=== PATIENT | male | born 1985 | race Caucasian/White ===

== ENCOUNTER 2021-05-14 13:48 | Emergency (ER) | payer MEDICAID, OTHER ==
[~2021-05-14] VITALS: Ht 172.7 cm; Wt 77.3 kg
[2021-05-14 14:32] VITALS: BP 127/95
[2021-05-14 15:46] LABS: BASOPHILS % (AUTO) 0.5 % (0-1); EOSINOPHILS % (AUTO) 0.5 % (0-6); HEMATOCRIT 40.8 % (42.0-52.0); HEMOGLOBIN 13.4 g/dl (14.0-17.9); LYMPHOCYTES # (AUTO) 1.7 X10'3 (1.1-4.8); LYMPHOCYTES % (AUTO) 19.8 % (21-51); MEAN CORPUSCULAR HGB CONC 32.9 g/dL (33.0-36.5); MEAN CORPUSCULAR VOLUME 81.9 FL (78-98); MEAN PLATELET VOLUME 7.6 FL (7.4-10.4); MONOCYTES # (AUTO) 0.6 X10'3 (0-0.9); MONOCYTES % (AUTO) 7.4 % (2-12); NEUTROPHILS # (AUTO) 6.2 X10'3 (1.8-7.7); NEUTROPHILS % (AUTO) 71.8 % (42-75); PLATELET COUNT 288 X10'3 (140-440); RED BLOOD COUNT 4.98 X10'6 (4.70-6.10); RED CELL DISTRIBUTION WIDTH 16.4 % (11.5-14.5); WHITE BLOOD COUNT 8.6 X10'3 (4.5-11.0)
[2021-05-14] MEDS ORDERED: penicillin G benzathine 1.2 million unit/2ml syringe IM ONE (15:50)
[2021-05-14] MEDS ORDERED: azithromycin 250mg tablet PO ONE (15:50)
[2021-05-14 15:57] LABS: ALANINE AMINOTRANSFERASE 23 U/L (12-78); ALBUMIN 4.1 G/DL (3.4-5.0); ALBUMIN/GLOBULIN RATIO 1.1 (1.1-1.5); ALKALINE PHOSPHATASE 59 IU/L (46-116); ANION GAP 8 (8-16); ASPARTATE AMINO TRANSFERASE 17 U/L (10-37); BILIRUBIN,TOTAL 0.3 MG/DL (0.1-1.0); BLOOD UREA NITROGEN 12 MG/DL (7-18); CALCIUM 8.8 MG/DL (8.5-10.1); CHLORIDE 108 MMOL/L (99-107); CREATININE 1.09 MG/DL (0.60-1.10); GLUCOSE 100 MG/DL (70-104); POTASSIUM 4.5 MMOL/L (3.5-5.1); SODIUM 145 MMOL/L (135-145); TOTAL PROTEIN 7.7 G/DL (6.4-8.2); eGFR 77 ML/MIN
[2021-05-14] MEDS ORDERED: PENICILLIN G BENZATHINE 2,400,000 UNIT/4 ML SYRINGE IM ONE (16:10)
[2021-05-14] MEDS ORDERED: IBUP-1984 PO (16:22)
== END 2021-05-14 16:25 | disposition home or self-care (01) ==
LOC: ER 13:50
DX: N48.89 Other specified disorders of penis (principal); Z20.2 Contact with and (suspected) exposure to infections with a predominantly sexual mode of transmission
CPT/HCPCS: 36415; 80053; 85025; 86592; 87491; 87591; 96372; 99283; J0561

== ENCOUNTER 2021-05-17 14:14 | Emergency (ER) | payer MEDICAID ==
[~2021-05-17] VITALS: Ht 185.4 cm; Wt 77.9 kg
[~2021-05-17 14:14] MED LIST: IBUP-1984 PO
[2021-05-17 15:27] VITALS: BP 134/63
== END 2021-05-17 19:16 | disposition home or self-care (01) ==
LOC: ER 14:14
DX: R07.89 Other chest pain (principal); Z79.899 Other long term (current) drug therapy
CPT/HCPCS: 71046; 99283

== ENCOUNTER 2021-05-21 12:57 | Emergency (ER) | payer MEDICAID ==
[~2021-05-21] VITALS: Ht 188 cm; Wt 78.0 kg
[2021-05-21 14:07] VITALS: BP 127/80
[2021-05-21] MEDS ORDERED: penicillin G benzathine 1.2 million unit/2ml syringe IM ONE (18:40)
== END 2021-05-21 19:18 | disposition home or self-care (01) ==
LOC: ER 12:58
DX: A53.9 Syphilis, unspecified (principal); Z79.899 Other long term (current) drug therapy
CPT/HCPCS: 96372; 99283; J0561

== ENCOUNTER 2021-08-21 20:08 | Emergency (ER) | payer MEDICAID ==
[~2021-08-21] VITALS: Ht 185.4 cm; Wt 72.7 kg
[2021-08-21 20:41] VITALS: BP 149/52
[2021-08-22] MEDS ORDERED: LORazepam 1 MG tablet PO ONE (00:30)
== END 2021-08-22 00:40 | disposition home or self-care (01) ==
LOC: ER 20:08
DX: F41.9 Anxiety disorder, unspecified (principal)
CPT/HCPCS: 99283

== ENCOUNTER 2021-09-07 21:24 | Emergency (ER) | payer MEDICAID ==
--- NOTE | 2021-09-07 22:36 | NUR ---
PATIENT SITS IN LOBBY. HE IS WATCHING TELEVISION. HE DECLINES TRIAGE ON MULTIPLE OCCASIONS. THIS MANAGER WILL RE-EVALUATE AFTER A FEW MINUTES.
--- NOTE | 2021-09-08 01:23 | NUR ---
PATIENT REFUSES TO BE TRIAGED ON MULTIPLE OCCASIONS. HE STATES PARANOIA, DENIES S/I OR H/I. PATIENT IS DISRUPTIVE IN WAITING ROOM. SECURITY HAS ADVISED PATIENT EARLIER TO SIT CALMLY. HE HAS NOT COMPLIED. SECURITY HAS BEEN CALLED AGAIN. PATIENT REFUSES EVALUATION OR TRIAGE.
--- NOTE | 2021-09-08 01:27 | NUR ---
PATIENT HAS NOW LEFT HOSPITAL PROPERTY.
== END 2021-09-08 01:30 | disposition left against medical advice (07) ==
LOC: ER 21:25
DX: E86.0 Dehydration (principal); Z53.21 Procedure and treatment not carried out due to patient leaving prior to being seen by health care provider

== ENCOUNTER 2021-09-23 19:03 | Emergency (ER) | payer MEDICAID ==
[~2021-09-23] VITALS: Ht 188 cm; Wt 75.0 kg
[2021-09-23 19:07] VITALS: BP 136/86
== END 2021-09-23 22:27 | disposition left against medical advice (07) ==
LOC: ER 19:03
DX: R42 Dizziness and giddiness (principal); Z53.21 Procedure and treatment not carried out due to patient leaving prior to being seen by health care provider

== ENCOUNTER 2021-09-24 02:53 | Emergency (ER) | payer MEDICAID | END 2021-09-24 04:31 | disposition left against medical advice (07) | LOC: ER 02:53 | DX: Z53.21 Procedure and treatment not carried out due to patient leaving prior to being seen by health care provider (principal) ==

== ENCOUNTER 2021-09-25 09:46 | Emergency (ER) | payer MEDICAID ==
[~2021-09-25] VITALS: Ht 188 cm; Wt 75.0 kg
[2021-09-25 10:15] VITALS: BP 126/88
== END 2021-09-25 12:47 | disposition home or self-care (01) ==
LOC: ER 09:47
DX: R05.9 Cough, unspecified (principal); Z20.822 Contact with and (suspected) exposure to COVID-19; R43.8 Other disturbances of smell and taste; Z87.891 Personal history of nicotine dependence
CPT/HCPCS: 87635; 99283; C9803

== ENCOUNTER 2021-10-07 06:21 | Emergency (ER) | payer MEDICAID ==
[~2021-10-07] VITALS: Ht 188 cm; Wt 77.3 kg
[2021-10-07 06:35] VITALS: BP 122/79
== END 2021-10-07 08:33 | disposition left against medical advice (07) ==
LOC: ER 06:21
DX: A08.4 Viral intestinal infection, unspecified (principal); R11.2 Nausea with vomiting, unspecified; R19.7 Diarrhea, unspecified; F17.200 Nicotine dependence, unspecified, uncomplicated
CPT/HCPCS: 99281

== ENCOUNTER 2021-10-17 03:44 | Emergency (ER) | payer MEDICAID ==
[~2021-10-17] VITALS: Ht 188 cm; Wt 71.0 kg
[2021-10-17 05:49] VITALS: BP 144/87
== END 2021-10-17 07:49 | disposition home or self-care (01) ==
LOC: ER 03:45
DX: Z11.52 Encounter for screening for COVID-19 (principal)
CPT/HCPCS: 99283

== ENCOUNTER 2021-10-18 19:28 | Emergency (ER) | payer MEDICAID ==
[~2021-10-18] VITALS: Ht 188 cm; Wt 72.0 kg
[2021-10-18 20:18] VITALS: BP 130/68
[2021-10-18 22:29] LABS: CLARITY,URINE SLIGHTLY CLOUDY (Clear); COLOR,URINE YELLOW (Yellow); GLUCOSE, URINE NEGATIVE (Neg); KETONES,URINE NEGATIVE (Neg); LEUKOCYTE ESTERASE ,URINE NEGATIVE (Neg); NITRITES, URINE NEGATIVE (Neg); OCCULT BLOOD,URINE NEGATIVE (Neg); PH,URINE 5.5 (4.8-8.0); PROTEIN,URINE 30 mg/dl (Neg)
[2021-10-18 22:30] LABS: UA COLLECTION TYPE CLN CATCH MIDSTREAM
[2021-10-18 22:41] LABS: MUCUS STRANDS MANY /LPF (Neg); SQUAMOUS EPITHELIAL CELL,UR FEW /LPF (FEW)
[2021-10-18 22:42] LABS: SPERM MANY /HPF (NEGATIVE)
[2021-10-18 22:44] LABS: URINE AMPHETAMINE SCREEN POSITIVE (Neg); URINE BARBITUATE SCREEN NEGATIVE (Neg); URINE BENZODIAZEPINES SCREEN NEGATIVE (Neg); URINE CANNABINOID SCREEN NEGATIVE (Neg); URINE COCAINE SCREEN NEGATIVE (Neg); URINE METHADONE SCREEN NEGATIVE (Neg); URINE OPIATE SCREEN NEGATIVE (Neg); URINE PHENCYCLIDINE SCREEN NEGATIVE (Neg)
[2021-10-18 22:45] LABS: BACTERIA,URINE NONE SEEN /HPF (Neg); WBC,URINE 0-4 /HPF (0-4)
== END 2021-10-19 02:57 | disposition left against medical advice (07) ==
LOC: ER 19:30
DX: M54.9 Dorsalgia, unspecified (principal); Z53.21 Procedure and treatment not carried out due to patient leaving prior to being seen by health care provider
CPT/HCPCS: 80305; 81001

== ENCOUNTER 2021-10-21 03:09 | Emergency (ER) | payer MEDICAID ==
[~2021-10-21] VITALS: Ht 188 cm; Wt 75.0 kg
[2021-10-21 03:53] VITALS: BP 143/95
--- NOTE | 2021-10-21 06:36 | NUR ---
Pt decied that he feels fine and will be tested later. He left without formal d/c.
== END 2021-10-21 06:36 | disposition left against medical advice (07) ==
LOC: ER 03:10
DX: U07.1 COVID-19 (principal); R43.8 Other disturbances of smell and taste; F17.200 Nicotine dependence, unspecified, uncomplicated
CPT/HCPCS: 99281

== ENCOUNTER 2021-10-27 22:33 | Emergency (ER) | payer MEDICAID ==
[~2021-10-27] VITALS: Ht 188 cm; Wt 71.9 kg
[2021-10-28 07:05] VITALS: BP 144/90
--- NOTE | 2021-10-28 07:45 | NUR ---
Pt given and understands d/c instructions. Ambulatory with a steady gait.
== END 2021-10-28 07:45 | disposition home or self-care (01) ==
LOC: ER 22:34
DX: R42 Dizziness and giddiness (principal); F15.90 Other stimulant use, unspecified, uncomplicated
CPT/HCPCS: 71045; 93005; 99283

== ENCOUNTER 2021-10-29 00:48 | Emergency (ER) | payer MEDICAID ==
[~2021-10-29] VITALS: Ht 188 cm; Wt 58.0 kg
[2021-10-29 02:28] VITALS: BP 124/83
== END 2021-10-29 03:10 | disposition home or self-care (01) ==
LOC: ER 00:48
DX: R42 Dizziness and giddiness (principal); R09.81 Nasal congestion; F15.10 Other stimulant abuse, uncomplicated
CPT/HCPCS: 99281

== ENCOUNTER 2021-12-26 16:11 | Emergency (ER) | payer MEDICAID ==
[~2021-12-26] VITALS: Ht 188 cm; Wt 86.0 kg
--- NOTE | 2021-12-26 18:09 | NUR ---
MOE CalvinHARTFORD) [phone]. CALL WHEN D/C FOR RIDE
[2021-12-27 01:38] VITALS: BP 132/55
== END 2021-12-27 01:43 | disposition home or self-care (01) ==
LOC: ER 16:12
DX: A52.3 Neurosyphilis, unspecified (principal); H53.8 Other visual disturbances; F15.90 Other stimulant use, unspecified, uncomplicated
CPT/HCPCS: 70450; 99284

== ENCOUNTER 2022-07-12 02:30 | Emergency (ER) | payer MEDICAID ==
[~2022-07-12] VITALS: Ht 188 cm; Wt 79.5 kg
[2022-07-12 02:35] VITALS: BP 127/83
--- NOTE | 2022-07-12 07:38 | NUR ---
ATTEMPT EKG, UNABLE TO LOCATE PATIENT IN ER LOBBY OR PARKING LOT.
== END 2022-07-12 09:26 | disposition left against medical advice (07) ==
LOC: ER 02:30
DX: R42 Dizziness and giddiness (principal); Z53.21 Procedure and treatment not carried out due to patient leaving prior to being seen by health care provider

== ENCOUNTER 2022-07-17 05:10 | Emergency (ER) | payer MEDICAID ==
[~2022-07-17] VITALS: Ht 188 cm; Wt 80.0 kg
[2022-07-17 05:13] VITALS: BP 135/92
== END 2022-07-17 06:21 | disposition left against medical advice (07) ==
LOC: ER 05:11
DX: R05.9 Cough, unspecified (principal); R19.7 Diarrhea, unspecified; Z53.21 Procedure and treatment not carried out due to patient leaving prior to being seen by health care provider

== ENCOUNTER 2022-10-10 21:18 | Emergency (ER) | payer MEDICAID ==
[~2022-10-10] VITALS: Ht 188 cm; Wt 72.7 kg
[~2022-10-10 21:18] MED LIST changes: +CLON-473 PO; +DULO-31 PO; -IBUP-1984 PO
[2022-10-10 21:23] VITALS: BP 140/93
[2022-10-10] MEDS ORDERED: ALBU6.7H14 INH (22:12)
[2022-10-10] MEDS ORDERED: AMOX-117 PO (22:12)
[2022-10-10] MEDS ORDERED: GUAI1TBM19 PO (22:12)
== END 2022-10-10 22:26 | disposition home or self-care (01) ==
LOC: ER 21:19
DX: J40 Bronchitis, not specified as acute or chronic (principal); F15.10 Other stimulant abuse, uncomplicated; F17.200 Nicotine dependence, unspecified, uncomplicated; Z79.899 Other long term (current) drug therapy
CPT/HCPCS: 71046; 99283

== ENCOUNTER 2022-10-11 06:56 | Emergency (ER) | payer MEDICAID ==
[~2022-10-11] VITALS: Ht 188 cm; Wt 72.7 kg
[~2022-10-11 06:56] MED LIST changes: +ALBU6.7H14 INH; +AMOX-117 PO; +GUAI1TBM19 PO
[2022-10-11 07:00] VITALS: BP 132/81
--- NOTE | 2022-10-11 07:26 | NUR ---
ASSESSED AND CLEARED BY MD SAMARA
== END 2022-10-11 07:33 | disposition home or self-care (01) ==
LOC: ER 06:57
DX: F15.90 Other stimulant use, unspecified, uncomplicated (principal); Z79.899 Other long term (current) drug therapy
CPT/HCPCS: 99281

== ENCOUNTER 2022-12-10 08:30 | Emergency (ER) | payer MEDICAID ==
[~2022-12-10] VITALS: Ht 188 cm; Wt 85.0 kg
[~2022-12-10 08:30] MED LIST changes: -AMOX-117 PO
[2022-12-10 08:39] VITALS: BP 129/57
[2022-12-10] MEDS ORDERED: PENICILLIN G BENZATHINE 2,400,000 UNIT/4 ML SYRINGE IM STA (09:42)
== END 2022-12-10 11:09 | disposition home or self-care (01) ==
LOC: ER 08:31
DX: A64 Unspecified sexually transmitted disease (principal); F15.90 Other stimulant use, unspecified, uncomplicated; Z79.899 Other long term (current) drug therapy
CPT/HCPCS: 36415; 86592; 96372; 99283; J0561

== ENCOUNTER 2023-07-04 19:51 | Emergency (ER) | payer MEDICAID ==
[~2023-07-04] VITALS: Ht 188 cm; Wt 80.4 kg
[2023-07-04 20:15] VITALS: BP 161/96; PULSE 99; RESP 18; TEMP 100.4; O2SAT 95
== END 2023-07-04 23:28 | disposition left against medical advice (07) ==
LOC: ER 19:52
DX: F15.10 Other stimulant abuse, uncomplicated (principal); Z79.899 Other long term (current) drug therapy
CPT/HCPCS: 99281

== ENCOUNTER 2023-07-05 09:08 | Emergency (ER) | payer MEDICAID ==
[~2023-07-05] VITALS: Ht 188 cm; Wt 78.2 kg
[2023-07-05 09:16] VITALS: BP 131/77; PULSE 74; RESP 16; TEMP 98.2; O2SAT 94
[2023-07-06] MEDS ORDERED: AMOX500C2 PO (11:27)
== END 2023-07-05 10:05 | disposition home or self-care (01) ==
LOC: ER 09:09
DX: F15.10 Other stimulant abuse, uncomplicated (principal); Z79.899 Other long term (current) drug therapy
CPT/HCPCS: 99281

== ENCOUNTER 2023-07-06 10:27 | Emergency (ER) | payer MEDICAID ==
[~2023-07-06] VITALS: Ht 188 cm; Wt 88.0 kg
[2023-07-06] MEDS ORDERED: AMOX500C2 PO (11:27)
[2023-07-06 11:38] VITALS: BP 132/86; PULSE 90; RESP 20; TEMP 97.8; O2SAT 97
--- NOTE | 2023-07-06 17:17 | NUR ---
I AGREE WITH THE ASSESSMENT DONE BY ARVIND FENG.
== END 2023-07-06 11:40 | disposition home or self-care (01) ==
LOC: ER 10:28
DX: F15.10 Other stimulant abuse, uncomplicated (principal); Z79.899 Other long term (current) drug therapy
CPT/HCPCS: 99283

== ENCOUNTER 2023-10-19 12:09 | Emergency (ER) | payer MEDICAID ==
[~2023-10-19] VITALS: Ht 188 cm; Wt 81.0 kg
[2023-10-19 14:06] LABS: BILIRUBIN,URINE MODERATE (Neg); CLARITY,URINE SLIGHTLY CLOUDY (Clear); GLUCOSE, URINE NEGATIVE (Neg); KETONES,URINE 15 mg/dl (Neg); LEUKOCYTE ESTERASE ,URINE NEGATIVE (Neg); NITRITES, URINE NEGATIVE (Neg); OCCULT BLOOD,URINE LARGE (Neg); PROTEIN,URINE 100 mg/dl (Neg)
[2023-10-19 14:18] LABS: URINE AMPHETAMINE SCREEN POSITIVE (Neg); URINE BARBITUATE SCREEN NEGATIVE (Neg); URINE BENZODIAZEPINES SCREEN NEGATIVE (Neg); URINE CANNABINOID SCREEN NEGATIVE (Neg); URINE COCAINE SCREEN NEGATIVE (Neg); URINE METHADONE SCREEN NEGATIVE (Neg); URINE OPIATE SCREEN NEGATIVE (Neg); URINE PHENCYCLIDINE SCREEN NEGATIVE (Neg)
[2023-10-19 14:20] LABS: BASOPHILS % (AUTO) 0.1 % (0-1); EOSINOPHILS % (AUTO) 0.3 % (0-6); HEMATOCRIT 40.2 % (42.0-52.0); HEMOGLOBIN 13.3 g/dl (14.0-17.9); LYMPHOCYTES # (AUTO) 1.5 X10'3 (1.1-4.8); LYMPHOCYTES % (AUTO) 12.3 % (21-51); MEAN CORPUSCULAR HEMOGLOBIN 28.4 PG (27.0-31.0); MEAN CORPUSCULAR HGB CONC 33.1 g/dL (33.0-36.5); MEAN CORPUSCULAR VOLUME 85.7 FL (78-98); MEAN PLATELET VOLUME 8.2 FL (7.4-10.4); MONOCYTES # (AUTO) 1.6 X10'3 (0-0.9); MONOCYTES % (AUTO) 12.6 % (2-12); NEUTROPHILS # (AUTO) 9.4 X10'3 (1.8-7.7); NEUTROPHILS % (AUTO) 74.7 % (42-75); PLATELET COUNT 212 X10'3 (140-440); RED BLOOD COUNT 4.69 X10'6 (4.70-6.10); RED CELL DISTRIBUTION WIDTH 14.4 % (11.5-14.5); WHITE BLOOD COUNT 12.6 X10'3 (4.5-11.0)
[2023-10-19 14:24] LABS: COLOR,URINE DARK YELLOW (Yellow); MUCUS STRANDS MANY /LPF (Neg); UA COLLECTION TYPE CLN CATCH MIDSTREAM
[2023-10-19 14:25] LABS: COARSE GRANULAR CAST 0-3 /LPF (NEGATIVE); FINE GRANULAR CAST 0-3 /LPF (NEGATIVE); HYALINE CASTS 0-3 /LPF (NEGATIVE); RBC,URINE TNTC /HPF (0-2); SQUAMOUS EPITHELIAL CELL,UR FEW /LPF (FEW)
[2023-10-19 14:26] LABS: AMORPHOUS URATES 1+; BACTERIA,URINE FEW /HPF (Neg)
[2023-10-19 14:32] LABS: ALANINE AMINOTRANSFERASE 42 U/L (12-78); ALBUMIN 4.2 G/DL (3.4-5.0); ALBUMIN/GLOBULIN RATIO 1.3 (1.1-1.5); ALKALINE PHOSPHATASE 74 IU/L (46-116); ANION GAP 12 (8-16); ASPARTATE AMINO TRANSFERASE 47 U/L (10-37); BILIRUBIN,TOTAL 1.2 MG/DL (0.1-1.0); BLOOD UREA NITROGEN 17 MG/DL (7-18); BUN/CREATININE RATIO 17.7 (10.0-20.0); C-REACTIVE PROTEIN 4.43 MG/DL (0.0-0.5); CALCIUM 9.2 MG/DL (8.5-10.1); CHLORIDE 100 MMOL/L (99-107); CREATININE 0.96 MG/DL (0.60-1.10); GLUCOSE 94 MG/DL (70-104); POTASSIUM 3.4 MMOL/L (3.5-5.1); SODIUM 139 MMOL/L (135-145); TOTAL CARBON DIOXIDE 27.4 MMOL/L (24-32); TOTAL PROTEIN 7.4 G/DL (6.4-8.2); eCRCL 120 ML/MIN; eGFR 88 ML/MIN
[2023-10-19] MEDS ORDERED: CefTRIAXone/D5W-Rocephin 1gm 50 ML IV ONE (15:30)
[2023-10-19] MEDS ORDERED: clindamycin 600mg/D5W 50ml 50 ML IV ONE (15:30)
[2023-10-19] MEDS ORDERED: LIDOcaine 1% W/epiNEPHrine 1:100,000 20ml vial SQ ONE (15:50)
[2023-10-19] MEDS ORDERED: LIDOCAINE 1%/EPI 1:100,000 inj. 10 ML multi-dose vial SQ ONE (16:00)
[2023-10-19 17:03] LABS: SYNOVIAL FLUID CRYSTALS QT NO CRYSTALS SEEN
[2023-10-19 17:38] LABS: APPEARANCE,SYNOVIAL FLUID CLOUDY; COLOR,SYNOVIAL FLUID OTHER
[2023-10-19 17:39] LABS: LYMPHOCYTES,SYNOVIAL FLUID 23 % (0-75); MONOCYTES,SYNOVIAL FLUID 18 % (0-0); NEUTROPHILS,SYNOVIAL FLUID 59 % (0-25); SYN RBC 10725 /CU MM (0)
[2023-10-19] MEDS ORDERED: SULF1TAB48 PO (17:49)
[2023-10-19 18:09] VITALS: BP 129/78; PULSE 80; RESP 17; TEMP 98.2; O2SAT 99
[2023-10-20 11:01] LABS: SYN WBC 150 /CU MM (0-200)
== END 2023-10-19 18:11 | disposition home or self-care (01) ==
LOC: ER 12:09
DX: M71.162 Other infective bursitis, left knee (principal); L03.116 Cellulitis of left lower limb; F15.90 Other stimulant use, unspecified, uncomplicated; Z79.899 Other long term (current) drug therapy
CPT/HCPCS: 20610; 36415; 73562; 80053; 80305; 81001; 83605; 84145; 85025; 85651; 86140; 87040; 87070; 87075; 87088; 89051; 89060; 96365; 96368; 99284; J0696; J3490

== ENCOUNTER 2023-10-19 20:42 | Emergency (ER) | payer MEDICAID ==
[~2023-10-19] VITALS: Ht 188 cm; Wt 81.8 kg
[~2023-10-19 20:42] MED LIST changes: +SULF1TAB48 PO
[2023-10-19] MEDS ORDERED: ibuprofen tablet 400 MG TABLET PO ONE (21:05)
[2023-10-19 23:11] VITALS: BP 127/69; PULSE 105; RESP 18; TEMP 98.6; O2SAT 98
== END 2023-10-19 21:16 | disposition home or self-care (01) ==
LOC: ER 20:43
DX: M25.562 Pain in left knee (principal); F15.90 Other stimulant use, unspecified, uncomplicated; Z79.899 Other long term (current) drug therapy; Z79.2 Long term (current) use of antibiotics
CPT/HCPCS: 29505; 99283

== ENCOUNTER 2024-01-23 23:08 | Emergency (ER) | payer MEDICAID ==
[~2024-01-23] VITALS: Ht 188 cm; Wt 75.3 kg
[~2024-01-23 23:08] MED LIST changes: -SULF1TAB48 PO
[2024-01-23 23:25] VITALS: BP 130/91; PULSE 90; RESP 18; TEMP 97.9; O2SAT 100
== END 2024-01-24 00:03 | disposition left against medical advice (07) ==
LOC: ER 23:09
DX: R42 Dizziness and giddiness (principal); R51.9 Headache, unspecified; Z53.21 Procedure and treatment not carried out due to patient leaving prior to being seen by health care provider
CPT/HCPCS: 82948; 93005

== ENCOUNTER 2024-03-01 21:14 | Emergency (ER) | payer MEDICAID ==
[~2024-03-01] VITALS: Ht 188 cm; Wt 76.0 kg
[2024-03-01 21:54] VITALS: BP 137/69; PULSE 83; RESP 16; TEMP 98; O2SAT 98
== END 2024-03-01 22:32 | disposition home or self-care (01) ==
LOC: ER 21:16
DX: F99 Mental disorder, not otherwise specified (principal); F15.90 Other stimulant use, unspecified, uncomplicated; Z79.899 Other long term (current) drug therapy
CPT/HCPCS: 99283

== ENCOUNTER 2024-03-08 04:33 | Emergency (ER) | payer MEDICAID ==
[2024-03-09] MEDS ORDERED: AMOX-117 PO (09:26)
[2024-03-09] MEDS ORDERED: PSEU120T56 PO (09:26)
[2024-03-09] MEDS ORDERED: FLUT16SP2 BOTHNARES (09:26)
== END 2024-03-08 07:05 | disposition left against medical advice (07) ==
LOC: ER 04:34
DX: Z00.00 Encounter for general adult medical examination without abnormal findings (principal); Z53.21 Procedure and treatment not carried out due to patient leaving prior to being seen by health care provider

== ENCOUNTER → 2024-03-09 | Emergency (ER) | payer MEDICAID ==
[~2024-03-09] VITALS: Ht 188 cm; Wt 70.1 kg
[~2024-03-09] MED LIST changes: +AMOX-117 PO; +FLUT16SP2 BOTHNARES; +PSEU120T56 PO
[2024-03-09 07:53] VITALS: BP 140/85; PULSE 58; RESP 18; TEMP 98.6; O2SAT 100
== END | disposition home or self-care (01) ==
LOC: ER 07:13
DX: J32.9 Chronic sinusitis, unspecified (principal); F15.90 Other stimulant use, unspecified, uncomplicated; H44.003 Unspecified purulent endophthalmitis, bilateral; Z79.899 Other long term (current) drug therapy
CPT/HCPCS: 99283

== ENCOUNTER 2025-04-30 10:43 | Emergency (ER) | payer MEDICAID ==
[~2025-04-30] VITALS: Ht 188 cm; Wt 75.6 kg
[~2025-04-30 10:43] MED LIST changes: -AMOX-117 PO
[2025-04-30 10:59] VITALS: BP 140/89; PULSE 110; RESP 16; TEMP 98.2; O2SAT 97
--- NOTE | 2025-04-30 11:39 | RADIOLOGY REPORT ---
CLINICAL INDICATION: FOOT PAIN,RIGHT TECHNIQUE: DI FOOT, COMPLETE (3VW MIN) Comparison: None FINDINGS/IMPRESSION: : Healing fracture of the mid 2nd metatarsal with extensive bony callus formation. Severe soft-tissue swelling at the distal dorsal aspect of the foot.
== END 2025-04-30 11:57 | disposition left against medical advice (07) ==
LOC: ER 10:43
DX: M79.671 Pain in right foot (principal); Z53.21 Procedure and treatment not carried out due to patient leaving prior to being seen by health care provider
CPT/HCPCS: 73630

== ENCOUNTER 2025-04-30 21:02 | Emergency (ER) | payer MEDICAID ==
[~2025-04-30] VITALS: Ht 188 cm; Wt 77.3 kg
[2025-04-30 21:06] VITALS: BP 147/102; PULSE 99; RESP 15; TEMP 98.6; O2SAT 98
--- NOTE | 2025-04-30 22:45 | Physician Documentation ---
History of Present Illness ~ Chief Complaint: Hallucinations Stated Complaint: HALLUCINATIONS Time Seen by MD: 21:22 Primary Medical Doctor: none HPI 40-year-old male presents to the ED after AMA pain from the lobby earlier today. His complaint is he thought he was at a laundromat and heard animals that were not there which concerned him. He denies any history of schizophrenia. He does report recent methamphetamine use however patient also complains of homelessness. He denies any SI or HI Day of Onset: Apr 30, 2025 Medication Reconciliation Allergies: Coded Allergies: No Known Allergies (Unverified , 03/09/24) Scheduled Albuterol Sulfate (Proventil Hfa), 2 PUFFS INH Q6H Clonidine HCl (Clonidine HCl), 1 TAB PO as directed Duloxetine Hcl* (Cymbalta*), 1 CAP PO DAILY Fluticasone Propionate (Flonase), 2 SPRAYS BOTHNARES DAILY Guaifenesin/Dextromethorphan (Mucinex Dm ER 1,200-60 mg Tab), 1 TAB PO Q12H Pseudoephedrine HCl (Sudafed 12 Hour), 1 TAB PO Q12H Past Medical History Past Medical History: No Pertinent History, *MUSCULOSKELETAL*, *INFECTIOUS DZ*, *PSYCH* Past Surgical History: noncontributory Alcohol Use: Rarely Drug Use: methamphetamine Lives with: Family Lives In: Home Occupation: employed Review of Systems All Other Systems at this time: Reviewed and Negative ROS As stated above in the HPI, otherwise all systems are reviewed and negative. Physical Exam Vital Signs: Temperature: 98.6, Source: Temporal, Heart Rate: 99, Respiratory Rate: 15, BP: 147/102, Pulse Oximetry: 98, Weight: 77.270 Physical Exam General: Alert, no apparent distress. Respiratory: Lungs clear, no respiratory distress. Cardiovascular: Regular rate and rhythm, no murmurs. Neurologic: Oriented x4. Psychiatric: Normal mood and affect. Progress Results/Orders Results/Orders Vital Signs 04/30/25 21:06 Temp 98.6 Pulse 99 Resp 15 B/P (MAP) 147/102 Pulse Ox 98 Medical Decision Making Findings Patient is highly suspicious for meth induced psychosis and/or hallucinations. He has been appropriate during the time he stayed in the ED. he does not present as a danger to himself he has denies any commanding hallucinations. At this time patient presents as a good candidate outpatient therapy for alcohol and drug rehabilitation Differential Dx:Considerations: Include: Alcohol abuse, Anxiety, Bipolar disorder, Conversion disorder, Depression, Encephaloathy, Homicidal, Panic disorder, Personality disorder, Schizophrenia, Substance abuse, Suicidal, Other Departure Disposition: 01 HOME / SELF CARE / HOMELESS Impression: Primary Impression: Hallucinations Additional Impressions: Schizophrenia Methamphetamine abuse Condition: Stable Discharge Instructions: Alcohol and Drug Use Additional Instructions: stop using methamphetamine Referrals: NO PRIMARY CARE PROVIDER (PCP) Education Educated: Patient Signature Scribe Signature: t Attestation: Scribed for Kit Layton Sand Mixer by Kit Martino NP . 04/30/25 22:51 KIT LAYTON NP Apr 30, 2025 22:45
== END 2025-04-30 23:06 | disposition home or self-care (01) ==
LOC: ER 21:03
DX: F20.9 Schizophrenia, unspecified (principal); F15.10 Other stimulant abuse, uncomplicated; Z59.00 Homelessness unspecified
CPT/HCPCS: 99283

== ENCOUNTER 2025-05-01 17:09 | Emergency (ER) | payer MEDICAID ==
[~2025-05-01] VITALS: Ht 188 cm; Wt 76.0 kg
[2025-05-01 17:34] VITALS: BP 136/78; PULSE 88; RESP 18; O2SAT 97
--- NOTE | 2025-05-01 20:28 | Physician Documentation ---
History of Present Illness ~ Chief Complaint: Foot pain Stated Complaint: RT FOOT PAIN Time Seen by MD: 19:48 Primary Medical Doctor: none Source: patient Mode of Arrival: POV Exam Limitations: no limitations HPI Chief Complaint: Right foot pain Caveat: None Independent Historians: None History of Present Illness: Patient is a 40-year-old man who fell at least 8 ft off a roof onto his feet. Patient since then has had severe pain in the mid anterior right foot. Patient states that he has always walking and has not been able to rest as much as possible because he is homeless and he has to go places. Patient's pain is 6/10 at rest and 10/10 with attempts at walking. Patient is unable to bear weight on the balls of his feet because of pain in the anterior and mid foot. Patient has associated swelling. Patient states that he has been walking on his heel. Patient Was seen here yesterday for the same thing and left AMA. Review of systems: All systems were reviewed and are negative except for what is indicated in the history of present illness. Past Medical History: None Past Surgical History: None Social History: Quit tobacco use, occasional alcohol use, occasional meth use Medications: Reviewed as documented Nursing Notes Allergies: Reviewed as documented in Nursing Notes Tetanus witin 5 years: No Medication Reconciliation Allergies: Coded Allergies: No Known Allergies (Unverified , 05/01/25) Scheduled Albuterol Sulfate (Proventil Hfa), 2 PUFFS INH Q6H Clonidine HCl (Clonidine HCl), 1 TAB PO as directed Duloxetine Hcl* (Cymbalta*), 1 CAP PO DAILY Fluticasone Propionate (Flonase), 2 SPRAYS BOTHNARES DAILY Guaifenesin/Dextromethorphan (Mucinex Dm ER 1,200-60 mg Tab), 1 TAB PO Q12H Pseudoephedrine HCl (Sudafed 12 Hour), 1 TAB PO Q12H Past Medical History Past Medical History: No Pertinent History, *MUSCULOSKELETAL*, *INFECTIOUS DZ*, *PSYCH* Past Surgical History: noncontributory Alcohol Use: Rarely Drug Use: methamphetamine Lives with: Family Lives In: Home Occupation: employed Review of Systems All Other Systems at this time: Reviewed and Negative ROS Patient denies any other acute symptoms other than above. All other systems are negative Physical Exam Vital Signs: RN Vital Signs have been reviewed: Yes, Temperature: 97.9, Source: Oral, Heart Rate: 88, Respiratory Rate: 18, BP: 136/78, Pulse Oximetry: 97, Weight: 76.000 Pulse Oximetry Reflects: adequate oxygenation Physical Exam General Appearance: No distress HEENT: Normal OP, moist oral mucosa, PERRL, EOMI Neck: supple, normal ROM, trachea midline Pulmonary: No respiratory distress, CTA, BS equal Cardiac: RRR, no murmur, rub or gallop, Extremities: normal ROM, swelling of the anterior mid right foot. Diffuse tenderness in the mid forefoot. Right ankle is nontender. Patient has an abrasion over the left Achilles tendon that has healing. Skin: intact, dry, warm, no rashes, see extremity exam above Neuro: AAOx3, speech is clear, no focal motor weakness Psych: normal affect, good eye contact, no apparent hallucination, normal speech Progress Results/Orders Results/Orders Orders - DANO GARCIA MD Ortho Orders (05/01/25 ) Vital Signs 05/01/25 05/01/25 17:34 21:29 Temp 97.9 97.9 Pulse 88 Resp 18 B/P (MAP) 136/78 Pulse Ox 97 Medical Decision Making Findings Differential diagnosis includes but is not limited to: Tarsal fracture, metacarpal fracture, contusion, Lisfranc's fracture Right foot x-rays, three views, indication: Trauma Independent interpretation: 2nd metatarsal fracture with some callus formation. Minimal displacement. Emergency department course/medical decision-making: Patient presents with right foot pain secondary to a fracture of the 2nd metatarsal that he suffered from two weeks ago. And was seen yesterday for the same thing but eloped. Patient is given a boot and crutches but then refused the crutches and he left. Instructed to follow up with the [facility] for referral to an orthopedist. Departure Time of Disposition: 21:23 Disposition: 01 HOME / SELF CARE / HOMELESS Impression: Primary Impression: Fracture of 2nd metatarsal Qualified Codes: S92.324G - Nondisplaced fracture of second metatarsal bone, right foot, subsequent encounter for fracture with delayed healing Condition: Stable Discharge Instructions: Fracture, Foot Additional Instructions: FOLLOW UP WITH THE [facility] FOR REFERRAL TO AN ORTHOPEDIST. WOULD REST THE FOOT FOR A COUPLE WEEKS WITH USE OF CRUTCHES AND THEN START USING WALKING BOOT. Referrals: DOMINICK LINARES Jr., MD Education Educated: Patient Educated regarding: diagnosis, treatment, need for follow up Signature Scribe Signature: No scribe Attestation: No scribe DANO GARCIA MD May 01, 2025 20:28
[2025-05-01 21:29] VITALS: TEMP 97.9
[2025-05-02] MEDS ORDERED: NAPR-56 PO (09:27)
[2025-05-02] MEDS ORDERED: ACET-2119 PO (09:27)
== END 2025-05-01 21:32 | disposition home or self-care (01) ==
LOC: ER 17:10
DX: S92.321A Displaced fracture of second metatarsal bone, right foot, initial encounter for closed fracture (principal); Z87.891 Personal history of nicotine dependence; W19.XXXA Unspecified fall, initial encounter; Y93.89 Activity, other specified; Y92.89 Other specified places as the place of occurrence of the external cause; Y99.8 Other external cause status
CPT/HCPCS: 99282; L4360

== ENCOUNTER 2025-05-02 05:40 | Emergency (ER) | payer MEDICAID ==
[~2025-05-02] VITALS: Ht 188 cm; Wt 77.3 kg
[2025-05-02 05:47] VITALS: TEMP 97.7
[2025-05-02] MEDS ORDERED: ACET-2119 PO (09:27)
[2025-05-02] MEDS ORDERED: NAPR-56 PO (09:27)
--- NOTE | 2025-05-02 09:27 | Physician Documentation ---
History of Present Illness ~ Chief Complaint: Medication Request Stated Complaint: MED REQUEST Time Seen by MD: 09:22 OK to notify your PCP?: Yes Primary Medical Doctor: none Source: patient Mode of Arrival: POV Exam Limitations: no limitations HPI 40-year-old male presents with right foot pain in his requesting pain medication. He has been seen here the past 2 days and yesterday was given a walking boot and instructed to follow up with the [facility]. X-ray showed he has a fracture of the 2nd metatarsal which occurred after he fell 8 ft off a roof onto his feet 2 weeks ago. He has been able to bear weight on the balls of his feet with wearing the boot. He was offered crutches yesterday but refused to use them. Has not taken any medications for his pain prior to arrival. Tetanus witin 5 years: No Medication Reconciliation Allergies: Coded Allergies: No Known Allergies (Unverified , 05/01/25) Scheduled Albuterol Sulfate (Proventil Hfa), 2 PUFFS INH Q6H Clonidine HCl (Clonidine HCl), 1 TAB PO as directed Duloxetine Hcl* (Cymbalta*), 1 CAP PO DAILY Fluticasone Propionate (Flonase), 2 SPRAYS BOTHNARES DAILY Guaifenesin/Dextromethorphan (Mucinex Dm ER 1,200-60 mg Tab), 1 TAB PO Q12H Naproxen (Naproxen), 1 TAB PO Q12H Pseudoephedrine HCl (Sudafed 12 Hour), 1 TAB PO Q12H Scheduled PRN Acetaminophen (Tylenol), 1 TAB PO Q4HPRN PRN for pain or fever Past Medical History Past Medical History: No Pertinent History, *MUSCULOSKELETAL*, *INFECTIOUS DZ*, *PSYCH* Past Surgical History: noncontributory Alcohol Use: Rarely Drug Use: methamphetamine Lives with: Family Lives In: Home Occupation: employed Review of Systems All Other Systems at this time: Reviewed and Negative Physical Exam Vital Signs: RN Vital Signs have been reviewed: Yes, Temperature: 97.7, Source: Temporal, Heart Rate: 54, Respiratory Rate: 15, BP: 151/86, Pulse Oximetry: 98, Weight: 77.270 Oxygen Flow Rate: 0 Pulse Oximetry Reflects: adequate oxygenation Physical Exam General: Alert, no distress. HEENT: No injection, moist mucous membranes. Neck: Full range of motion. Respiratory: No respiratory distress, equal chest rise and fall. Chest: No accessory muscle use. Cardiovascular: Regular rate and rhythm. Gastrointestinal: Nondistended. Extremities: Decreased range of motion of right foot, tenderness to palpation of mid foot and ball of foot, no bruising or swelling noted and is ambulatory with the use of walking boot. Left ankle has Cedric wrap in place, ambulatory and not tender to palpation. Neurologic: Oriented x4. Psychiatric: Normal mood and affect. Skin: Normal color, warm and dry. Progress Results/Orders Reviewed/noted all lab results: Yes Results/Orders Completed Orders - PACHECO FIGUEROA Naproxen Tablet (Naprosyn Tablet) (05/02/25 09:25) Acetaminophen 325mg Tablet (Tylenol Tabl (05/02/25 09:25) Vital Signs 05/02/25 05/02/25 05:47 08:55 Temp 97.7 Pulse 77 54 Resp 18 15 B/P (MAP) 140/91 151/86 (107) Pulse Ox 98 98 O2 Flow Rate 0 0 Medical Decision Making Additional info obtained from: old records Findings 40-year-old male who was seen here the past 2 days for fracture of 2nd metatarsal and right foot and requesting pain medication. I have prescribed him Tylenol and naproxen sent to his pharmacy with the 1st dose given here in the department. He was instructed to use RICE therapy. He was instructed again to follow up with the [facility] to see your orthopedist. He agrees to this plan. Foot Diff Dx:Considerations: Include: Dislocation, Gout, Neurovascular injury, Open fracture Departure Disposition: 01 HOME / SELF CARE / HOMELESS Impression: Primary Impression: Pain Condition: Stable Discharge Instructions: RICE Therapy for Routine Care of Injuries, [id number] Additional Instructions: You were given Tylenol and naproxen while here in the emergency department and a prescription was sent to your pharmacy. Follow up with the [facility] for further treatment and return back here for any new or worsening symptoms. Referrals: NO PRIMARY CARE PROVIDER (PCP) Prescriptions Naproxen (Naproxen) 500 Mg Tablet 1 TAB PO Q12H, #20 TAB Prov: PACHECO FIGUEROA NEW MEDIA STRATEGIST 05/02/25 Acetaminophen (Tylenol) 325 Mg Tablet 1 TAB PO Q4HPRN PRN for pain or fever for 5 Days, #30 TAB Prov: PACHECO FIGUEROA 05/02/25 Education Educated: Patient Educated regarding: diagnosis, treatment, prognosis, need for follow up Additional Comment Medical Screen Exam This patient recieved a medical screening examination. After reviewing the individual's medical complaints with presenting symptoms and performing an appropriate physical examination, it was determined that no immediate life- threatening emergency medical condition is present. This individual is also not a women having contractions. Signature Scribe Signature: . Attestation: Scribed for Pacheco Figueroa by Pacheco Martino NP . 05/02/25 09:35 Parts of this note were created using [employer] voice recognition software program. While efforts were made to correct any mistakes made by this voice recognition software program, nonsensical phrases may remain in this note. In addition, there may be errors and syntax, grammar, content and spelling. PACHECO FIGUEROA May 02, 2025 09:27
[2025-05-02 09:30] VITALS: BP 121/86; PULSE 54; RESP 15; O2SAT 98
== END 2025-05-02 09:37 | disposition home or self-care (01) ==
LOC: ER 05:40
DX: S92.201A Fracture of unspecified tarsal bone(s) of right foot, initial encounter for closed fracture (principal); F15.90 Other stimulant use, unspecified, uncomplicated; X58.XXXA Exposure to other specified factors, initial encounter; Y93.89 Activity, other specified; Y92.89 Other specified places as the place of occurrence of the external cause; Y99.8 Other external cause status
CPT/HCPCS: 99283

== ENCOUNTER 2025-05-03 02:38 | Emergency (ER) | payer MEDICAID ==
[~2025-05-03] VITALS: Ht 188 cm; Wt 77.3 kg
[~2025-05-03 02:38] MED LIST changes: +ACET-2119 PO; +NAPR-56 PO
--- NOTE | 2025-05-03 03:49 | Physician Documentation ---
History of Present Illness ~ General Chief Complaint: Hallucinations Stated Complaint: DIZZY Time Seen by MD: 02:47 Primary Medical Doctor: none Mode of Arrival: EMS History of Present Illness Initial Comments 40 year old male reports that he woke up on the street and felt a "vibration" all around him and experienced the sensation that his R leg was being squeezed. He is wearing a hard walking boot on the R ankle from a prior injury. He now feels better and is asymptomatic. Denies other symptoms. Medication Reconciliation Allergies: Coded Allergies: No Known Allergies (Unverified , 05/01/25) Scheduled Albuterol Sulfate (Proventil Hfa), 2 PUFFS INH Q6H Clonidine HCl (Clonidine HCl), 1 TAB PO as directed Duloxetine Hcl* (Cymbalta*), 1 CAP PO DAILY Fluticasone Propionate (Flonase), 2 SPRAYS BOTHNARES DAILY Guaifenesin/Dextromethorphan (Mucinex Dm ER 1,200-60 mg Tab), 1 TAB PO Q12H Naproxen (Naproxen), 1 TAB PO Q12H Pseudoephedrine HCl (Sudafed 12 Hour), 1 TAB PO Q12H Scheduled PRN Acetaminophen (Tylenol), 1 TAB PO Q4HPRN PRN for pain or fever Past Medical History Past Medical History: No Pertinent History, *MUSCULOSKELETAL*, *INFECTIOUS DZ*, *PSYCH* Past Surgical History: noncontributory Alcohol Use: Rarely Drug Use: methamphetamine Lives with: Family Lives In: Home Occupation: employed Review of Systems All Other Systems at this time: Reviewed and Negative Physical Exam Physical Exam Vital Signs: RN Vital Signs have been reviewed: Yes, Temperature: 98.2, Source: Oral, Heart Rate: 92, Respiratory Rate: 16, Pulse Oximetry: 95, Weight: 77.270 Physical Exam HEENT: PERRL, moist oral mucosa, EOMI Pulmonary: No respiratory distress MSK: no deformity Skin: w/d/i, no rash Neuro: alert, nonfocal Psych: normal affect Progress Results/Orders Reviewed/noted all lab results: Yes Results/Orders Vital Signs 05/03/25 05/03/25 02:45 02:51 Temp 98.2 Pulse 92 Resp 14 16 B/P (MAP) Pulse Ox 95 Medical Decision Making Findings 40 year old male with vague sensations as above. Observed, exam unremarkable, sleeping on reevaluation. Will discharge with return precautions. Differential Diagnosis Ddx = substance intoxication, hallucination, delusion, malingering Departure Disposition: HOME / SELF CARE / HOMELESS Impression: Primary Impression: Hallucinations Condition: Stable Discharge Instructions: Bike Safety, Adult Referrals: NO PRIMARY CARE PROVIDER (PCP) Education Educated: Patient Educated regarding: diagnosis, treatment, prognosis, need for follow up Signature Scribe Signature: . Attestation: . JANETH BAIRD MD May 03, 2025 03:49
[2025-05-03 04:02] VITALS: BP 116/72; PULSE 72; RESP 12; TEMP 98.2; O2SAT 96
== END 2025-05-03 04:11 | disposition home or self-care (01) ==
LOC: ER 02:39
DX: R44.3 Hallucinations, unspecified (principal)
CPT/HCPCS: 99284

== ENCOUNTER 2025-05-05 00:36 | Emergency (ER) | payer MEDICAID ==
[~2025-05-05] VITALS: Ht 188 cm; Wt 82.0 kg
--- NOTE | 2025-05-05 01:14 | Physician Documentation ---
History of Present Illness ~ Chief Complaint: Anxiety Stated Complaint: CHEST PAIN Time Seen by MD: 01:05 Primary Medical Doctor: none HPI Patient presents to the emergency room for general evaluation. He states he feels he just needs to have his vitals checked in be reassured. No other complaints. He did endorse chest pain to triage nurse but speaks nothing of this during my history taking Medication Reconciliation Allergies: Coded Allergies: No Known Allergies (Unverified , 05/05/25) Scheduled Albuterol Sulfate (Proventil Hfa), 2 PUFFS INH Q6H Clonidine HCl (Clonidine HCl), 1 TAB PO as directed Duloxetine Hcl* (Cymbalta*), 1 CAP PO DAILY Fluticasone Propionate (Flonase), 2 SPRAYS BOTHNARES DAILY Guaifenesin/Dextromethorphan (Mucinex Dm ER 1,200-60 mg Tab), 1 TAB PO Q12H Naproxen (Naproxen), 1 TAB PO Q12H Pseudoephedrine HCl (Sudafed 12 Hour), 1 TAB PO Q12H Scheduled PRN Acetaminophen (Tylenol), 1 TAB PO Q4HPRN PRN for pain or fever Past Medical History Past Medical History: No Pertinent History, *MUSCULOSKELETAL*, *INFECTIOUS DZ*, *PSYCH* Past Surgical History: noncontributory Alcohol Use: Rarely Drug Use: methamphetamine Lives with: Family Lives In: Home Occupation: employed Review of Systems ROS All review of systems negative except as per HPI Physical Exam Vital Signs: Temperature: 98.9, Source: Oral, Heart Rate: 71, Respiratory Rate: 17, BP: 139/92, Pulse Oximetry: 98, Weight: 82.000 Oxygen Flow Rate: 0 Physical Exam General: Patient is awake, alert, oriented x4 in no acute distress Head: Normocephalic and atraumatic. Eyes: Conjunctival normal. EOMI. PERRL. ENT: Mucous membranes moist. Neck: Supple, trachea is midline. Chest: Clear to auscultation bilaterally without rales, rhonchi, or wheezes. There is no accessory muscle use or retractions. Cardiac: RRR without murmurs, gallops, or rubs. Extremities: Patient with boot in his right foot ambulatory without issue Progress Results/Orders Results/Orders Orders - ROBERTO MUHAMMAD MD Electrocardiogram (05/05/25 ) Vital Signs 05/05/25 00:40 Temp 98.9 Pulse 71 Resp 17 B/P (MAP) 139/92 Pulse Ox 98 O2 Flow Rate 0 EKG/XRAY/CT/US/VASC/MRI EKG : Additional Comment EKG interpreted by myself shows time of 0040, rate of 94, sinus rhythm, normal axis, no ST changes Medical Decision Making Findings Patient presents to the emergency room for general evaluation. EKGs reassuring as are vitals. I do not feel emergent labs are necessary or imaging necessary Departure Disposition: 01 HOME / SELF CARE / HOMELESS Impression: Primary Impression: General medical exam Condition: Stable Discharge Instructions: General Discharge Instructions Referrals: NO PRIMARY CARE PROVIDER (PCP) Signature Scribe Signature: No scribe Attestation: The note accurately reflects work and decisions made by me.Roberto Muhammad MD 05/05/25 01:14 ROBERTO MUHAMMAD MD May 05, 2025 01:14
[2025-05-05 01:26] VITALS: BP 135/92; PULSE 70; RESP 17; TEMP 98.6; O2SAT 98
--- NOTE | 2025-05-05 07:04 | ELECTROCARDIOGRAPH REPORT ---
[facility] Test Date: 2025-05-05 Test Time: 00:40:58 Pat Name: DANIA FUCHS Department: EMERGENCY ROOM Room: Gender: M Operations Lieutenant: : 1985 Requested By: NICOLE PASCUAL Order Number: [id number] Reading MD: Measurements Intervals [place] Rate: 94 P: 67 HI: 124 QRS: 78 QRSD: 99 T: 67 QT: 382 QTc: 478 Interpretive Statements Sinus rhythm Left ventricular hypertrophy Borderline prolonged QT interval Please click the below link to view image of tracing.
== END 2025-05-05 01:29 | disposition home or self-care (01) ==
LOC: ER 00:37
DX: Z00.8 Encounter for other general examination (principal); R07.9 Chest pain, unspecified; F15.90 Other stimulant use, unspecified, uncomplicated
CPT/HCPCS: 93005; 99283

== ENCOUNTER 2025-05-06 13:30 | Emergency (ER) | payer MEDICAID ==
[~2025-05-06] VITALS: Ht 188 cm; Wt 77.3 kg
[2025-05-06 13:34] VITALS: BP 145/98; PULSE 100; RESP 18; TEMP 97.4; O2SAT 98
--- NOTE | 2025-05-06 13:58 | Physician Documentation ---
History of Present Illness ~ Chief Complaint: Medical Clearance Stated Complaint: HALLUCINATIONS Time Seen by MD: 13:52 Primary Medical Doctor: NO PCP HPI 40-year-old male presents to the ED for a complaint of homelessness and chronic methamphetamine use. States he does not like being homeless and feels that it is dangerous "out there". Wants to be cleared so he go to recovery Center in [place]. He says that he does not want to go to one of the rehabs locally. Day of Onset: May 06, 2025 Tetanus within 5 years?: Yes (2023) Medication Reconciliation Allergies: Coded Allergies: No Known Allergies (Unverified , 05/06/25) Scheduled Albuterol Sulfate (Proventil Hfa), 2 PUFFS INH Q6H Clonidine HCl (Clonidine HCl), 1 TAB PO as directed Duloxetine Hcl* (Cymbalta*), 1 CAP PO DAILY Fluticasone Propionate (Flonase), 2 SPRAYS BOTHNARES DAILY Guaifenesin/Dextromethorphan (Mucinex Dm ER 1,200-60 mg Tab), 1 TAB PO Q12H Naproxen (Naproxen), 1 TAB PO Q12H Pseudoephedrine HCl (Sudafed 12 Hour), 1 TAB PO Q12H Scheduled PRN Acetaminophen (Tylenol), 1 TAB PO Q4HPRN PRN for pain or fever Past Medical History Past Medical History: No Pertinent History, *MUSCULOSKELETAL*, *INFECTIOUS DZ*, *PSYCH* Past Surgical History: noncontributory Alcohol Use: Rarely Drug Use: methamphetamine Lives with: Family Lives In: Home Occupation: employed Review of Systems All Other Systems at this time: Reviewed and Negative ROS As stated above in the HPI, otherwise all systems are reviewed and negative. Physical Exam Vital Signs: Temperature: 97.4, Source: Temporal, Heart Rate: 100, Respiratory Rate: 18, BP: 145/98, Pulse Oximetry: 98, Weight: 77.270 Physical Exam General: Alert, no apparent distress. Respiratory: Lungs clear, no respiratory distress. Cardiovascular: Regular rate and rhythm, no murmurs. Gastrointestinal: Soft, nontender, nondistended. Bowels sounds present. Neurologic: Oriented x4. Psychiatric: Normal mood and affect. Skin: Normal color, warm and dry. No edema, no ecchymosis. Progress Results/Orders Results/Orders Vital Signs 05/06/25 13:34 Temp 97.4 Pulse 100 Resp 18 B/P (MAP) 145/98 Pulse Ox 98 Medical Decision Making Findings This patient does not present acutely ill or under the influence of any other substances or alcohol. Homelessness seems to be the primary complaint other than ongoing drug use I am going to clear him for recovery program and further evaluation in the outpatient setting Differential Dx:Considerations: Include: Intoxication-Alcohol, Intoxication- Other drug, Personality disorder, Substance abuse disorder, Acute delirium, Closed head injury, Cervical spine injury, Skull fracture, Fracture(s), Abrasion, Contusion, Foreign body, Hematoma, Laceration, Alcohol withdrawl sy ndrom, Encephalopathy, Hepatitis, Medically stable, Other Departure Disposition: 01 HOME / SELF CARE / HOMELESS Impression: Primary Impression: General medical exam Additional Impression: Methamphetamine abuse Discharge Instructions: Medical Screening Exam Additional Instructions: You are medically cleared for drug and alcohol rehabilitation program. Referrals: NO PRIMARY CARE PROVIDER (PCP) Education Educated: Patient Educated regarding: diagnosis Signature Scribe Signature: f Attestation: Scribed for Kit Layton Owner Professional Engineer by Kit Layton - JULIA . 05/06/25 17:10 KIT LAYTON NP May 06, 2025 13:57
== END 2025-05-06 14:33 | disposition home or self-care (01) ==
LOC: ER 13:31
DX: F15.10 Other stimulant abuse, uncomplicated (principal); Z59.00 Homelessness unspecified; Z79.899 Other long term (current) drug therapy
CPT/HCPCS: 99283

== ENCOUNTER 2025-05-27 22:56 | Emergency (ER) | payer MEDICAID ==
[~2025-05-27] VITALS: Ht 185.4 cm; Wt 77.3 kg
[~2025-05-27 22:56] MED LIST changes: -ACET-2119 PO
[2025-05-27 23:00] VITALS: BP 158/102; PULSE 98; RESP 16; TEMP 98.6; O2SAT 97
--- NOTE | 2025-05-28 00:24 | Physician Documentation ---
History of Present Illness General Chief Complaint: See Chief Complaint Stated Complaint: DIZZINESS Time Seen by MD: 01:02 Primary Medical Doctor: NO PCP History of Present Illness Initial Comments This is a 40-year-old male who presents to the emergency department for unclear chief complaint, patient initially told triage nurse that he was here for conc anatoly for being chased by a snake in a supermarket though reports was not fit by a snake, patient then endorsed concern for equilibrium being off. Medication Reconciliation Allergies: Coded Allergies: No Known Allergies (Unverified , 05/27/25) Scheduled Albuterol Sulfate (Proventil Hfa), 2 PUFFS INH Q6H Cephalexin*Monohydrate* (Keflex*), 1 CAP PO QID Clonidine HCl (Clonidine HCl), 1 TAB PO as directed Duloxetine Hcl* (Cymbalta*), 1 CAP PO DAILY Fluticasone Propionate (Flonase), 2 SPRAYS BOTHNARES DAILY Guaifenesin/Dextromethorphan (Mucinex Dm ER 1,200-60 mg Tab), 1 TAB PO Q12H Naproxen (Naproxen), 1 TAB PO Q12H Pseudoephedrine HCl (Sudafed 12 Hour), 1 TAB PO Q12H Past Medical History Past Medical History: No Pertinent History, *MUSCULOSKELETAL*, *INFECTIOUS DZ*, *PSYCH* Past Surgical History: noncontributory Alcohol Use: Rarely Drug Use: methamphetamine Lives with: Family Lives In: Home Occupation: employed Review of Systems ROS As stated above in the HPI, otherwise all systems are reviewed and negative. Physical Exam Physical Exam Vital Signs: Temperature: 98.6, Source: Temporal, Heart Rate: 98, Respiratory Rate: 16, BP: 158/102, Pulse Oximetry: 97, Weight: 77.270 Physical Exam VITALS: Reviewed and as above. GENERAL: Alert, nontoxic appearing, no apparent distress. RESPIRATORY: No increased work of breathing, no respiratory distress, speaking in full clear sentences CV: Brisk capillary refill to right foot and toes MUSCULOSKELETAL: Walking boot in place on right lower extremity SKIN: Skin of right posterior calf erythematous mild induration, no fluctuance NEURO: GCS 15, sensation intact to right foot and toes PSYCH: Erratic pressured speech Progress Progress Note On re-evaluation of patient patient now reports his chief concern is pain to his right posterior calf under walking boot, patient reports no fever chills or other systemic symptoms. Results/Orders Results/Orders Vital Signs 05/27/25 23:00 Temp 98.6 Pulse 98 Resp 16 B/P (MAP) 158/102 Pulse Ox 97 Medical Decision Making Findings MSE performed in triage and patient returned to ED lobby by nursing staff to await available ED room, patient re-evaluated with new chief concern of pain to right calf, normal exam right calf is consistent with uncomplicated cellulitis. Patient reports no other acute symptoms or concerns at this point. Patient is otherwise well-appearing and appropriate for outpatient follow up. Patient discharged on course of oral antibiotics. Differential Diagnosis Suicidal Ideation, Homicidal Ideation, Psychosis, grave disability, mental disorder, abscess, alcohol intoxication, drug intoxication, CVA, TIA, BPPV Departure Time of Disposition: : Disposition: HOME / SELF CARE / HOMELESS Impression: Primary Impression: Cellulitis Qualified Codes: L03.115 - Cellulitis of right lower limb Condition: Improved Discharge Instructions: Cellulitis, Adult, [id number] Additional Instructions: Please take the antibiotics as prescribed. Please follow up with your primary care provider or the [facility] in the next few days. Please return to the emergency department for any new or worsening concerning symptoms. Referrals: NO PRIMARY CARE PROVIDER (PCP) Prescriptions Cephalexin*Monohydrate* (Keflex*) 500 Mg Capsule 1 CAP PO QID for 10 Days, #40 CAP Prov: MARIE THOMPSON 05/28/25 Education Educated: Patient Educated regarding: diagnosis, treatment, prognosis, need for follow up Signature Scribe Signature: No Scribe Attestation: The note accurately reflects work and decisions made by me.MILI Kong 05/30/25 16:14 MARIE THOMPSON May 28, 2025 00:24
[2025-05-28] MEDS ORDERED: CEPH-585 PO (01:02)
== END 2025-05-28 02:21 | disposition home or self-care (01) ==
LOC: ER 22:57
DX: L03.115 Cellulitis of right lower limb (principal)
CPT/HCPCS: 99283

== ENCOUNTER 2025-05-30 05:42 | Emergency (ER) | payer MEDICAID ==
[~2025-05-30] VITALS: Ht 188 cm; Wt 80.1 kg
[~2025-05-30 05:42] MED LIST changes: +CEPH-585 PO
[2025-05-30 05:54] VITALS: BP 132/79; PULSE 78; RESP 18; TEMP 98.4; O2SAT 96
--- NOTE | 2025-05-30 06:42 | Physician Documentation ---
History of Present Illness ~ Chief Complaint: See Chief Complaint Stated Complaint: SUPPLY REQUEST Time Seen by MD: 06:37 OK to notify your PCP?: Yes Primary Medical Doctor: NO PCP Source: patient, RN/, RN notes reviewed, old records Mode of Arrival: POV Exam Limitations: no limitations HPI This patient has a bit vague with a history of his original break. He states he broke at around six weeks ago. May 31 he was seen with a partially healing fracture of the 2nd metatarsal. Patient is homeless continues to walk on it. He was given an ortho boot but did not follow up with Orthopedic surgery. Import patient did not have insurance or resources nor did he have a phone. He states he has a now and will follow up with [facility]. He has pain when he walks or some swelling about two days ago it started to hurt again and swell. He is here for re-evaluation. He is otherwise in good health has no other complaints at this time. Tetanus witin 5 years: No Medication Reconciliation Allergies: Coded Allergies: No Known Allergies (Unverified , 05/27/25) Scheduled Albuterol Sulfate (Proventil Hfa), 2 PUFFS INH Q6H Cephalexin*Monohydrate* (Keflex*), 1 CAP PO QID Clonidine HCl (Clonidine HCl), 1 TAB PO as directed Duloxetine Hcl* (Cymbalta*), 1 CAP PO DAILY Fluticasone Propionate (Flonase), 2 SPRAYS BOTHNARES DAILY Guaifenesin/Dextromethorphan (Mucinex Dm ER 1,200-60 mg Tab), 1 TAB PO Q12H Naproxen (Naproxen), 1 TAB PO Q12H Pseudoephedrine HCl (Sudafed 12 Hour), 1 TAB PO Q12H Past Medical History Past Medical History: No Pertinent History, *MUSCULOSKELETAL*, *INFECTIOUS DZ*, *PSYCH* Past Surgical History: noncontributory Alcohol Use: Rarely Drug Use: methamphetamine Lives with: Family Lives In: Home Occupation: employed Review of Systems All Other Systems at this time: Reviewed and Negative Physical Exam Vital Signs: RN Vital Signs have been reviewed: Yes, Temperature: 98.4, Source: Oral, Heart Rate: 78, Respiratory Rate: 18, BP: 132/79, Pulse Oximetry: 96, Weight: 80.100 Physical Exam General: The patient is well developed, well nourished, nontoxic appearing and is in no acute distress. Skin: [place], warm and dry with no rashes. HEENT: Head was normocephalic and atraumatic. Eyes - pupils equal, round, reactive to light and accommodation. Extraocular movements were intact. Conjunctivae were nonicteric. Neck: Supple and nontender. There was no jugular venous distention, Chest: Clear to auscultation bilaterally without wheezes, rales or rhonchi. No accessory muscle use. Heart: Rate regular and rhythmic. S1, S2. No murmurs. Abdomen: Soft, nontender and nondistended. Positive bowel sounds. No guarding or rebound. Extremities: No cyanosis, clubbing or edema. The patient moves all extremities. Pulses were equal and symmetric. Right foot is wrapped. Trace soft tissue swelling and edema. Neurologic: Motor sensory grossly intact Psychologic: The patient was oriented to person, place and time. The patient demonstrated appropriate judgement and insight. Procedures Procedures Postop shoe was provided as well as crutches Progress Results/Orders Reviewed/noted all lab results: Yes Results/Orders Orders - AMADA LAWRENCE MD, Complete (3vw Min) (05/30/25 06:47) Ortho Orders (05/30/25 07:07) Completed Orders - AMADA LAWRENCE MD, Complete (3vw Min) (05/30/25 06:47) Vital Signs 05/30/25 05:54 Temp 98.4 Pulse 78 Resp 18 B/P (MAP) 132/79 Pulse Ox 96 Re-Evaluation Re-Evaluation : Progress Patient was seen and examined. Patient is given reassurance. X-ray showed a significant callus. This is a three-view x-ray. Patient was given crutches and a postoperative shoe. No pain medications. Patient is to follow up with Orthopedic surgery for definitive care. Patient may be at a point where he does not need crutches and can ambulate despite pain. He he was told pain needs to be his guide however being homeless he has limited options. EKG/XRAY/CT/US/VASC/MRI Bone/Soft Tissue X-Ray (Ext.) : Interpreted By: both Views: 3 VIEW Additional Comment SLIM FOOT, COMPLETE (3VW MIN), INDICATION: pain prior fracture TECHNICAL DATA: Frontal, oblique and lateral views were obtained of the right foot. COMPARISON: DI FOOT, COMPLETE (3VW MIN) on DOS: 04/30/25, DI KNEE W/OBLIQUES 3 VW on DOS: 10/19/23 FINDINGS: Healing 2, 3 metatarsal fracture with callus formation. Joint spaces are maintained. Alignment is anatomic. The hallux sesamoids appear normal. Soft tissues are within normal limits. IMPRESSION: Healing 2, 3 metatarsal fracture with callus formation. Electronically Signed by:RIC CUTLER MD Date & Time: 05/30/25712 Medical Decision Making Additional info obtained from: old records Foot Diff Dx:Considerations: Include: Abrasion, Arthritis, Cellulitis, Contusion, Dislocation, Fracture-metatarsal, Fracture-phalynx, Fracture-tarsal, Other Departure Disposition: 01 HOME / SELF CARE / HOMELESS Impression: Primary Impression: Fracture of 2nd metatarsal Qualified Codes: S92.324G - Nondisplaced fracture of second metatarsal bone, right foot, subsequent encounter for fracture with delayed healing Condition: Stable Discharge Instructions: Avulsion Fracture of the Foot Referrals: NO PRIMARY CARE PROVIDER (PCP) MONTY MONTAGUE MD Education Educated: Patient Educated regarding: diagnosis, other Signature Scribe Signature: No scribed Attestation: The note accurately reflects work and decisions made by me.Amada Lawrence MD 05/30/25 06:42 AMADA LAWRENCE MD May 30, 2025 06:42
--- NOTE | 2025-05-30 07:15 | RADIOLOGY REPORT ---
DI FOOT, COMPLETE (3VW MIN), INDICATION: pain prior fracture TECHNICAL DATA: Frontal, oblique and lateral views were obtained of the right foot. COMPARISON: DI FOOT, COMPLETE (3VW MIN) on DOS: 04/30/25, DI KNEE W/OBLIQUES 3 VW on DOS: 10/19/23 FINDINGS: Healing 2, 3 metatarsal fracture with callus formation. Joint spaces are maintained. Alignment is rajesh tomic. The hallux sesamoids appear normal. Soft tissues are within normal limits. IMPRESSION: Healing 2, 3 metatarsal fracture with callus formation.
== END 2025-05-30 07:39 | disposition home or self-care (01) ==
LOC: ER 05:42
DX: S92.324A Nondisplaced fracture of second metatarsal bone, right foot, initial encounter for closed fracture (principal); X58.XXXA Exposure to other specified factors, initial encounter; Y93.89 Activity, other specified; Y92.89 Other specified places as the place of occurrence of the external cause; Y99.8 Other external cause status
CPT/HCPCS: 73630; 99283; L3260